=== PATIENT | female | born 1960 | race Caucasian/White ===

== ENCOUNTER → 2017-09-30 | Outpatient (CLI) | payer OTHER ==
--- NOTE | 2017-09-30 08:52 | US ---
EXAMINATION TYPE: US liver DATE OF EXAM: 09/30/2017 COMPARISON: NONE CLINICAL HISTORY: 57-year-old female R94.5 Abnormal liver test. TECHNIQUE: Multiple sonographic images of the right upper quadrant are obtained. FINDINGS: WOOD CASKET ASSEMBLER NOTES: Difficult and limited exam due to patient body habitus EXAM MEASUREMENTS: Liver Length: 19.1 cm Gallbladder Wall: 0.2 cm CBD: 0.4 cm Right Kidney: 10.2 x 5.3 x 5.4 cm Pancreas: Obscured by bowel gas. Liver: Attenuating, enlarged. Coarse, echogenic parenchyma. This secondarily limits assessment for f ocal lesion. Gallbladder: wnl Evidence for sonographic Salazar's sign: No CBD: wnl as visualized, distal portion obscured by bowel gas Right Kidney: No hydronephrosis. IMPRESSION: Hepatomegaly (19.1 cm) with at least moderate hepatic steatosis. Correlate with LFTs, lipid profile, and patient risk factors.
== END | disposition home or self-care (01) ==
LOC: RADUSWWP 07:58
PROVIDERS: ATTEND Internal Medicine
DX: K76.0 Fatty (change of) liver, not elsewhere classified (principal)
CPT/HCPCS: 76705

== ENCOUNTER → 2018-05-09 | Outpatient (CLI) | payer OTHER ==
--- NOTE | 2018-05-13 07:43 | MM ---
Reason for exam: screening (asymptomatic). History: Patient is postmenopausal. Family history of breast cancer in maternal aunt. Physical Findings: A clinical breast exam by your physician is recommended on an annual basis and results should be correlated with mammographic findings. MG Screening Mammo w CAD Bilateral CC and MLO view(s) were taken. No prior studies available for comparison. The breast tissue is heterogeneously dense. This may lower the sensitivity of mammography. There is no discrete abnormality. ASSESSMENT: Benign, BI-RAD 2 RECOMMENDATION: Routine screening mammogram of both breasts in 1 year.
== END | disposition home or self-care (01) ==
LOC: RADMAMWWP 15:09
PROVIDERS: ATTEND Internal Medicine
DX: Z12.31 Encounter for screening mammogram for malignant neoplasm of breast (principal)
CPT/HCPCS: 77067

== ENCOUNTER → 2018-05-23 | Outpatient (CLI) | payer OTHER ==
--- NOTE | 2018-05-23 13:10 | XR ---
EXAMINATION TYPE: XR chest 2V DATE OF EXAM: 05/23/2018 COMPARISON: NONE HISTORY: Concern for left lung pulmonary nodule TECHNIQUE: Frontal and lateral views of the chest are obtained. FINDINGS: There is mild interstitial pulmonary edema and pulmonary vascular congestion. Left basal a telectasis is noted. Moderate multilevel degenerative changes of the spine are seen. No sizable pulmo nary nodule is noted on chest radiograph. Osseous structures are grossly intact. Cardiomediastinal si lhouette is enlarged. IMPRESSION: Mild pulmonary vascular congestion and interstitial edema, likely on the basis of conges tive heart failure. This limits evaluation for pulmonary nodules. CT thorax is recommended to ensure no underlying pulmonary nodule given the indication of the exam.
== END | disposition home or self-care (01) ==
LOC: RADXRMAIN 12:18
PROVIDERS: ATTEND Internal Medicine
DX: R91.8 Other nonspecific abnormal finding of lung field (principal); R09.89 Other specified symptoms and signs involving the circulatory and respiratory systems; R60.0 Localized edema
CPT/HCPCS: 71046

== ENCOUNTER → 2018-06-13 | Outpatient (CLI) | payer OTHER | END | disposition home or self-care (01) | LOC: RADNMMAIN 10:31 | PROVIDERS: ATTEND Internal Medicine | DX: Z53.9 Procedure and treatment not carried out, unspecified reason (principal) ==

== ENCOUNTER → 2018-06-13 | Outpatient (CLI) | payer OTHER ==
[2018-06-13 12:41] LABS: Blood Urea Nitrogen 14 mg/dL (7-17)
--- NOTE | 2018-06-13 13:43 | CT ---
EXAMINATION TYPE: CT chest w con DATE OF EXAM: 06/13/2018 COMPARISON: NONE HISTORY: Abnormal left lung field. CT DLP: 928.4 mGycm. Automated Exposure Control for Dose Reduction was Utilized. TECHNIQUE: CT scan of the thorax is performed following with IV Contrast, patient injected with 100 mL of Isovue M300. FINDINGS: LUNGS: Centrally calcified right 1 cm pulmonary nodule in the superior segment of the lower lobe medi ally most commonly represents a benign granuloma. However this calcification centrally is only faint when the bone algorithm is used for assessment. No other sizable pulmonary nodules are seen. No left-sided pulmonary nodule is seen. There are overall low lung volumes and pleural parenchymal sc arring within the lingula and left lower lobe. No pleural effusion or pneumothorax. No focal consolid ation. Main tracheobronchial tree is patent. MEDIASTINUM: There are no greater than 1 cm hilar or mediastinal lymph nodes. Few coronary calcificat ions are present. Heart is upper limits of normal in size. No pericardial effusion is seen. OTHER: The liver is enlarged and hypoattenuated compatible with hepatic steatosis. Moderate multileve l degenerative changes of the spine are seen. IMPRESSION: 1. Solitary right pulmonary nodule contains internal calcifications and is highly favored to represen t a benign granuloma however considering calcifications are only faint and no other granulomatous galindo nges are seen within the chest or upper abdomen follow-up CT thorax is recommended in 6-12 months to ensure stability. 2. Hepatic steatosis.
--- NOTE | 2018-06-13 13:58 | EST ---
EXERCISE STRESS AGE: 57 SEX: F HT: 68 WT: 348 PROTOCOL: Osmar Stress Test STAGE: 1 DURATION OF EXERCISE: 1:31 HEART RATE REST: 106 BLOOD PRESSURE REST: 139/89 MAXIMUM HEART RATE ACHIEVED: 168 MAXIMUM BLOOD PRESSURE: 142/89 85% MPHR: 139 100% MPHR: 164 METS: 2.8 INDICATIONS: Shortness of breath. CLINICAL INFORMATION: Baseline rhythm is sinus mechanism, rate of 106, normal axis and intervals, poor R-wave progression, nonspecific ST-T wave changes. Baseline blood pressure 139/89 mmHg. Patient exercised on Osmar protocol for 1 minute 30 seconds reaching peak rate of 168 beats per minute which is equal to 85% maximum predicted heart rate. Peak blood pressure 142/89 mmHg. Test was terminated secondary to fatigue. There was no chest pain. Electrocardiograph monitoring revealed no evidence of diagnostic ischemic ST deviation. Atrial arrhythmia was noted with short bursts of supraventricular tachycardia. CONCLUSION: 1. Very poor exercise tolerance. 2. One episode of atrial arrhythmia. 3. Normal electrocardiographic response to exercise with no evidence of exercise- induced ischemia. MMODL / IJN: [id number] / MTDD
--- NOTE | 2018-06-13 18:05 | ECHOF ---
Referral Reason:BILATERAL EDEMA, ETC MEASUREMENTS -------- HEIGHT: 165.1 cm WEIGHT: 157.8 kg BP: RVIDd: 3.0 cm (< 3.3) IVSd: 1.2 cm (0.6 - 1.1) LVIDd: 4.6 cm (3.9 - 5.3) LVPWd: 1.2 cm (0.6 - 1.1) IVSs: 1.4 cm LVIDs: 3.2 cm LVPWs: 1.4 cm LA Diam: 4.3 cm (2.7 - 3.8) Ao Diam: 3.5 cm (2.0 - 3.7) AV Cusp: 2.2 cm (1.5 - 2.6) LA Diam: 4.1 cm (2.7 - 3.8) MV EXCURSION: 17.701 mm (> 18.000) MV EF SLOPE: 90 mm/s (70 - 150) EPSS: 0.5 cm MV E Valdemar: 0.56 m/s MV DecT: 174 ms MV A Valdemar: 0.63 m/s MV E/A Ratio: 0.88 RAP: 5.00 mmHg RVSP: 24.33 mmHg FINDINGS -------- Sinus rhythm. Morbid Obesity The left ventricular size is normal. There is mild concentric left ventricular hypertrophy. Overa ll left ventricular systolic function is normal with, an EF between 55 - 60 %. The right ventricle is normal in size. The left atrium is mildly dilated. The right atrial size is normal. The atrial septal defect shunts from left to right. ASD VS PFO. There is mild aortic valve sclerosis. There is no evidence of aortic regurgitation. Mild mitral annular calcification present. Mild mitral regurgitation is present. Mild tricuspid regurgitation present. There is no evidence of pulmonary hypertension. The right v entricular systolic pressure, as measured by Doppler, is 24.33mmHg. There is no pulmonic regurgitation present. The aortic root size is normal. Echo free space represents a pericardial fat pad. Possible PFO/ASD: Bubble Study Done Per Adriano GAR CONCLUSIONS -------- 1. Sinus rhythm. 2. Morbid Obesity 3. The left ventricular size is normal. 4. There is mild concentric left ventricular hypertrophy. 5. Overall left ventricular systolic function is normal with, an EF between 55 - 60 %. 6. The left atrium is mildly dilated. 7. The atrial septal defect shunts from left to right. 8. ASD VS PFO. 9. There is mild aortic valve sclerosis. 10. Mild mitral annular calcification present. 11. Mild mitral regurgitation is present. 12. Mild tricuspid regurgitation present. 13. There is no evidence of pulmonary hypertension. 14. There is no pulmonic regurgitation present. 15. The aortic root size is normal. 16. Echo free space represents a pericardial fat pad. 17. Possible PFO/ASD: Bubble Study Done Per Primary DRKwame CONSTRUCTION ELECTRICIAN: Radha Navarro RDCS
== END ==
LOC: RADCTMAIN 10:33
PROVIDERS: ATTEND Internal Medicine
DX: R91.1 Solitary pulmonary nodule (principal); R91.8 Other nonspecific abnormal finding of lung field; R60.0 Localized edema; R09.89 Other specified symptoms and signs involving the circulatory and respiratory systems; R06.09 Other forms of dyspnea; G47.33 Obstructive sleep apnea (adult) (pediatric); E66.01 Morbid (severe) obesity due to excess calories; R06.01 Orthopnea; E11.9 Type 2 diabetes mellitus without complications
CPT/HCPCS: 93017; 93306; 82565; 84520; 71260; 36415; Q9967

== ENCOUNTER → 2018-07-31 | Outpatient (CLI) | payer OTHER ==
--- NOTE | 2018-07-31 16:38 | CT ---
EXAMINATION TYPE: CT soft tissue neck wo/w con DATE OF EXAM: 07/31/2018 COMPARISON: None HISTORY: Left side neck mass CT DLP: 1437 mGycm CONTRAST: Patient injected with 100 mL of Isovue 300. TECHNIQUE: Axial images at 3 mm thick sections. Reconstructed images in the coronal plane and sagitt al plane are reviewed. FINDINGS: Limited CT sections are obtained the lung apices. The lung apices appear clear. CT neck: The torus tubarius and fossa of Rosenmuller are normal. Rough And Trueing Machine Operator spaces are normal. Para nasal sinuses and mastoid air cells are clear. Parotid glands appear normal and symmetrical. Submandibular glands, are normal. Parapharyngeal spac es are normal. No suspicious adenopathy is evident. The hypopharynx appears within normal limits. Vocal cord level appear symmetrical. Thyroid as visualized is normal. Osseous structures are normal. IMPRESSIONS: 1. No suspicious abnormality to account for reported left-sided neck mass
== END | disposition home or self-care (01) ==
LOC: RADCTMAIN 13:58
PROVIDERS: ATTEND Internal Medicine
DX: R22.1 Localized swelling, mass and lump, neck (principal); Z88.2 Allergy status to sulfonamides; Z88.1 Allergy status to other antibiotic agents
CPT/HCPCS: 82565; 84520; 70492; 36415; Q9967

== ENCOUNTER → 2018-10-22 | Outpatient (CLI) | payer OTHER ==
--- NOTE | 2018-10-22 09:59 | US ---
EXAMINATION TYPE: US abdomen complete DATE OF EXAM: 10/22/2018 COMPARISON: US 2018 CLINICAL HISTORY: R10 Abdominal and pelvic pain. Intermittent abdomen pain x couple months EXAM MEASUREMENTS: Liver Length: 21.8 cm Gallbladder Wall: 0.2 cm CBD: 0.5 cm Spleen: 12.2 cm Right Kidney: 10.8 x 5.9 x 6.9 cm Left Kidney: 11.5 x 6.1 x 6.1 cm Difficult and limited study due to patient body habitus Pancreas: visualized portions wnl, limited by overlying midline bowel gas Liver: enlarged, attenuating, increased echogenicity, heterogeneous, 6.3 x 1.8 x 4.1cm hypoechoic ar ea Gallbladder: wnl Evidence for sonographic Salzaar's sign: no CBD: wnl Spleen: wnl Right Kidney: wnl Left Kidney: wnl Upper IVC: wnl Abd Aorta: visualized portions wnl, distal portion obscured by overlying midline bowel gas The visualized liver remains heterogeneously hyperechoic. Evaluation for focal masses is suboptimal d ue to the heterogeneity. No intrahepatic ductal dilatation is seen. The intrahepatic portion of the IVC and proximal abdominal aorta are within normal limits. There is no evidence of cholelithiasis. Common bile duct is unremarkable. The visualized portions of the pancreas are homogenous. The splee n is unremarkable. Kidneys are symmetric and free of hydronephrosis. No renal lesions are seen. IMPRESSION: Heterogeneous hyperechoic appearance of liver redemonstrated favors product of diffuse fa tty infiltration. Underlying hepatocellular disease is not excluded. No new or acute finding is evide nt. Suboptimal study noted.
--- NOTE | 2018-10-22 10:12 | US ---
EXAMINATION TYPE: US pelvic complete DATE OF EXAM: 10/22/2018 COMPARISON: NONE CLINICAL HISTORY: R10 Abdominal and pelvic pain. Intermittent abdomen pain x couple months, 4 , para 3, miscarriage 1, history of partial hysterectomy. TECHNIQUE: . Transabdominal sonographic images of the pelvis were acquired. Transvaginal sonographi c images were medically necessary to better assess the following anatomy: ovaries Date of LMP: 2005 EXAM MEASUREMENTS: Uterus: surgically absent Endometrial Stripe: surgically absent Right Ovary: not seen Left Ovary: not seen Difficult and limited study due to patient body habitus 1. Uterus: surgically absent 2. Endometrium: surgically absent 3. Right Ovary: not seen 4. Left Ovary: not seen 5. Bilateral Adnexa: wnl 6. Posterior cul-de-sac: wnl IMPRESSION: Posthysterectomy changes. No suspicious mass or fluid.
== END | disposition home or self-care (01) ==
LOC: RADUSWWP 07:59
PROVIDERS: ATTEND Internal Medicine
DX: R10.32 Left lower quadrant pain (principal); Z90.710 Acquired absence of both cervix and uterus
CPT/HCPCS: 76700; 76830; 76856

== ENCOUNTER 2019-08-27 14:59 | Inpatient (IN) | payer OTHER ==
[2019-08-27] MEDS ORDERED: SODIUM CHLORIDE 0.9% 500 ML 500 ML IV STA (15:21)
--- NOTE | 2019-08-27 15:41 | ED ---
General Adult HPI - General Chief complaint: Shortness of Breath Stated complaint: fluid retention/high BP Source: patient Mode of arrival: ambulatory Limitations: no limitations - History of Present Illness Initial comments: 59-year-old female patient with past medical history significant for COPD, coronary artery disease, hypertension, diabetes presents to the emergency depart ment today for evaluation of increased shortness of breath, weakness, leg swelling. Patient has been having issues swelling with her legs since being discharged from the hospital a little over a week ago. She was diagnosed with COVID-19 at the beginning of May. States that she was hospitalized for 53 days, 3 weeks of which she was intubated in the ICU. Patient states that she has been taking Lasix in attempt to control his swelling but it is not helping. States she did see her construction cost estimator today who recommended she come to the emergency department for evaluation of possible blood clots. Patient states she has had DVT to the left lower extremity in the past and is currently takes aroun d so for this. Patient states her blood pressure has been elevated at home in the 170s systolic over 109 diastolic. He has been taking her medications as directed. She is currently using 4 L of oxygen at home, on a 50 foot tube. Patient denies any recent rash, fever, chills, cough, abdominal pain, nausea, vomiting, diarrhea, constipation, back pain, numbness, tingling, hematuria, dysuria, urinary urgency, urinary frequency, headache, visual changes, or any other complaints. - Related Data Home Medications Medication Instructions Recorded Confirmed Acetaminophen [Tylenol Extra 500 mg PO DAILY PRN 05/20/19 05/20/19 Strength] Carvedilol 50 mg PO BID 05/20/19 05/20/19 Chlorthalidone 25 mg PO DAILY 05/20/19 05/20/19 Furosemide [Lasix] 40 mg PO DAILY 05/20/19 05/20/19 Glimepiride [Amaryl] 1 mg PO AC-BRKFST 05/20/19 05/20/19 Potassium Chloride [Klor-Con 10] 10 meq PO DAILY 05/20/19 05/20/19 Rivaroxaban [Xarelto] 20 mg PO DAILY 05/20/19 05/20/19 amLODIPine [Norvasc] 10 mg PO DAILY 05/20/19 05/20/19 oxyCODONE-APAP 10-325MG [Percocet 1 tab PO Q8HR PRN 05/20/19 05/20/19 10-325 mg] Allergies Allergy/AdvReac Type Severity Reaction Status Date / Time cephalexin [From Keflex] AdvReac Rash/Hives Verified 08/27/19 15:03 Sulfa (Sulfonamide AdvReac Rash/Hives Verified 08/27/19 15:03 Antibiotics) Review of Systems ROS Statement: Those systems with pertinent positive or pertinent negative responses have been documented in the HPI. ROS Other: All systems not noted in ROS Statement are negative. Past Medical History Past Medical History: Coronary Artery Disease (CAD), COPD, Diabetes Mellitus, Hypertension, Renal Disease Additional Past Medical History / Comment(s): Chronic low back pain, obesity, type 2 diabetes, suspected renal failure. Past ESCROW CLERK history: Genital herpes but she states she has not had any outbreaks for years. History of Any Multi-Drug Resistant Organisms: None Reported Past Surgical History: Hysterectomy, Joint Replacement Additional Past Surgical History / Comment(s): DESMOND/BSO in 2005, bilateral knee replacements, vascular leg stents, D&C. Past Psychological History: No Psychological Hx Reported Smoking Status: Never smoker Past Alcohol Use History: None Reported Past Drug Use History: None Reported - Past Family History Father Family Medical History: Cancer, Myocardial Infarction (MA) Additional Family Medical History / Comment(s): Esophageal cancer Mother Family Medical History: Rheumatoid Arthritis (RA) Additional Family Medical History / Comment(s): Gout. Maternal aunt had lung cancer and breast cancer. Daughter(s) Additional Family Medical History / Comment(s): Depression. General Exam Limitations: no limitations General appearance: alert, in no apparent distress, other (This is a well- developed, well-nourished adult female patient in no acute distress. Vital signs upon presentation are temperature 98.8F, pulse 144, respirations 20, blood pressure 140/99, pulse ox 91% on 4 L.) Eye exam: Present: normal appearance, PERRL, EOMI. Absent: scleral icterus, conjunctival injection, periorbital swelling ENT exam: Present: normal exam, normal oropharynx, mucous membranes moist Respiratory exam: Present: normal lung sounds bilaterally. Absent: respiratory distress, wheezes, rales, rhonchi, stridor Cardiovascular Exam: Present: normal rhythm, tachycardia, normal heart sounds. Absent: systolic murmur, diastolic murmur, rubs, gallop, clicks GI/Abdominal exam: Present: soft, normal bowel sounds. Absent: distended, tenderness, guarding, rebound, rigid Extremities exam: Present: full ROM, normal capillary refill, other (There is bilateral lower extremity swelling over the lower leg and feet. It is nonpitting edema. No erythema.). Absent: normal inspection, tenderness, pedal edema, joint swelling, calf tenderness Neurological exam: Present: alert, oriented X3, CN II-XII intact Psychiatric exam: Present: normal affect, normal mood Skin exam: Present: warm, dry, intact, normal color. Absent: rash Course Vital Signs 08/27/19 08/27/19 08/27/19 15:00 15:11 15:20 Temperature 98.8 F Pulse Rate 144 H Respiratory 20 13 Rate Blood Pressure 140/99 158/103 O2 Sat by Pulse 91 L 98 98 Oximetry 08/27/19 08/27/19 08/27/19 15:30 15:40 15:50 Temperature Pulse Rate 129 H 93 Respiratory 23 24 20 Rate Blood Pressure 158/103 141/73 141/73 O2 Sat by Pulse 97 98 99 Oximetry 08/27/19 08/27/19 08/27/19 16:00 16:10 16:20 Temperature Pulse Rate 96 101 H 100 Respiratory 21 Rate Blood Pressure 141/73 125/95 125/95 O2 Sat by Pulse 99 99 98 Oximetry 08/27/19 08/27/19 16:30 17:00 Temperature Pulse Rate 99 97 Respiratory Rate Blood Pressure 125/95 142/90 O2 Sat by Pulse 97 100 Oximetry EKG Findings - EKG Comments: EKG Findings:: EKG obtained at 1520 shows sinus tachycardia with ventricular rate is 135, NV interval 140, QRS duration 102, QT to 94, QTC 441. No evidence of ST elevation or depression. Medical Decision Making - Medical Decision Making 59-year-old female patient presents to the emergency department today for evaluation of leg swelling, elevated blood pressure, and shortness of breath. Patient was hospitalized for 53 days after being diagnosed with COVID-19 at the beginning of May. Patient states she has been home and has been recovering but over the last few days has been feeling worse. She does wear 4-5 L of oxygen at home. Upon initial evaluation heart rate was 140, she is to Make, there is evidence for leg swelling. She does take developed over history of DVT. Labs reviewed and did reveal elevated d-dimer, or otherwise unremarkable. CT angiography of the chest was obtained and did show bilateral pneumonia. This patient was hospitalized at [facility] we are unsure if this is improving or worsening. We'll admit to the hospital for antibiotics and further monitoring. Patient is agreeable this plan. - Lab Data Result diagrams: 08/27/19 15:26 08/27/19 15:26 Lab Results 08/27/19 08/27/19 08/27/19 Range/Units 15:26 15:26 15:26 WBC 10.5 (3.8-10.6) k/uL RBC 4.49 (3.80-5.40) m/uL Hgb 12.6 (11.4-16.0) gm/dL Hct 40.0 (34.0-46.0) % MCV 89.3 (80.0-100.0) fL MCH 28.0 (25.0-35.0) pg MCHC 31.4 (31.0-37.0) g/dL RDW 16.0 H (11.5-15.5) % Plt Count 246 (150-450) k/uL Neutrophils % 56 % Lymphocytes % 33 % Monocytes % 5 % Eosinophils % 3 % Basophils % 1 % Neutrophils # 5.9 (1.3-7.7) k/uL Lymphocytes # 3.5 (1.0-4.8) k/uL Monocytes # 0.5 (0-1.0) k/uL Eosinophils # 0.3 (0-0.7) k/uL Basophils # 0.1 (0-0.2) k/uL Anisocytosis Slight PT 11.7 (9.0-12.0) sec INR 1.2 H (<1.2) APTT 26.2 (22.0-30.0) sec D-Dimer 1.20 H (<0.60) mg/L FEU Sodium 135 L (137-145) mmol/L Potassium 3.8 (3.5-5.1) mmol/L Chloride 91 L (98-107) mmol/L Carbon Dioxide 34 H (22-30) mmol/L Anion Gap 10 mmol/L BUN 18 H (7-17) mg/dL Creatinine 0.62 (0.52-1.04) mg/dL Est GFR (CKD-EPI)AfAm >90 (>60 ml/min/1.73 sqM) Est GFR (CKD-EPI)NonAf >90 (>60 ml/min/1.73 sqM) Glucose 138 H (74-99) mg/dL Plasma Lactic Acid Carlton (0.7-2.0) mmol/L Calcium 9.6 (8.4-10.2) mg/dL Total Bilirubin 0.8 (0.2-1.3) mg/dL AST 52 H (14-36) U/L ALT 33 (4-34) U/L Alkaline Phosphatase 79 (38-126) U/L Troponin I (0.000-0.034) ng/mL Total Protein 8.2 (6.3-8.2) g/dL Albumin 4.5 (3.5-5.0) g/dL 08/27/19 08/27/19 Range/Units 15:26 15:26 WBC (3.8-10.6) k/uL RBC (3.80-5.40) m/uL Hgb (11.4-16.0) gm/dL Hct (34.0-46.0) % MCV (80.0-100.0) fL MCH (25.0-35.0) pg MCHC (31.0-37.0) g/dL RDW (11.5-15.5) % Plt Count (150-450) k/uL Neutrophils % % Lymphocytes % % Monocytes % % Eosinophils % % Basophils % % Neutrophils # (1.3-7.7) k/uL Lymphocytes # (1.0-4.8) k/uL Monocytes # (0-1.0) k/uL Eosinophils # (0-0.7) k/uL Basophils # (0-0.2) k/uL Anisocytosis PT (9.0-12.0) sec INR (<1.2) APTT (22.0-30.0) sec D-Dimer (<0.60) mg/L FEU Sodium (137-145) mmol/L Potassium (3.5-5.1) mmol/L Chloride (98-107) mmol/L Carbon Dioxide (22-30) mmol/L Anion Gap mmol/L BUN (7-17) mg/dL Creatinine (0.52-1.04) mg/dL Est GFR (CKD-EPI)AfAm (>60 ml/min/1.73 sqM) Est GFR (CKD-EPI)NonAf (>60 ml/min/1.73 sqM) Glucose (74-99) mg/dL Plasma Lactic Acid Carlton 1.9 (0.7-2.0) mmol/L Calcium (8.4-10.2) mg/dL Total Bilirubin (0.2-1.3) mg/dL AST (14-36) U/L ALT (4-34) U/L Alkaline Phosphatase (38-126) U/L Troponin I 0.020 (0.000-0.034) ng/mL Total Protein (6.3-8.2) g/dL Albumin (3.5-5.0) g/dL - Radiology Data Radiology results: report reviewed, image reviewed CT chest angiography for pulmonary embolism was obtained. Report was reviewed in its entirety. Impression by Dr. Batres shows no evidence of pulmonary embolism. Extensive bilateral anterior pulmonary infiltrates consistent with pneumonia. X-ray of the chest is obtained. Report reviewed in its entirety. Impression by Dr. Juarez shows new linear left midlung opacities and may represent developing pneumonia or atelectasis. Disposition Clinical Impression: Pneumonia Disposition: ADMITTED IP TO THIS [facility] Condition: Serious Referrals: Issac Cook MD [Primary Care Provider] - 1-2 days Decision to Admit Reason: Admit from EC Decision Date: 08/27/19 Decision Time: 18:01
--- NOTE | 2019-08-27 15:41 | XR ---
EXAMINATION TYPE: XR chest 2V DATE OF EXAM: 08/27/2019 COMPARISON: 05/23/2018 HISTORY: Dyspnea TECHNIQUE: Frontal and lateral views of the chest are obtained. FINDINGS: New linear left midlung opacity could represent atelectasis or developing pneumonia. Cardi a mediastinal silhouette is again mildly enlarged. Improved aeration of the left costophrenic angle i n comparison to the prior. Moderate degenerative change of the spine. IMPRESSION: New linear left midlung opacities that may represent developing pneumonia or atelectasis .
[2019-08-27 15:48] LABS: Anisocytosis Slight; Basophils # (A) 0.1 k/uL (0-0.2); Basophils % (A) 1 %; Eosinophils # (A) 0.3 k/uL (0-0.7); Eosinophils % (A) 3 %; HGB 12.6 gm/dL (11.4-16.0); Lymphocytes # (A) 3.5 k/uL (1.0-4.8); Lymphocytes % (A) 33 %; MCHC 31.4 g/dL (31.0-37.0); MCV 89.3 fL (80.0-100.0); Mean Platelet Volume 8.1; Monocytes # (A) 0.5 k/uL (0-1.0); Monocytes % (A) 5 %; Neutrophils # (A) 5.9 k/uL (1.3-7.7); Neutrophils % (A) 56 %; Platelet Count 246 k/uL (150-450); RBC 4.49 m/uL (3.80-5.40); WBC 10.5 k/uL (3.8-10.6)
[2019-08-27 15:58] LABS: ALT 33 U/L (4-34); AST 52 U/L (14-36); African American GFR (CKD) >90 (>60 ml/min/1.73 sqM); Albumin 4.5 g/dL (3.5-5.0); Alkaline Phosphatase 79 U/L (38-126); Anion Gap 10 mmol/L; Blood Urea Nitrogen 18 mg/dL (7-17); Calcium 9.6 mg/dL (8.4-10.2); Carbon Dioxide 34 mmol/L (22-30); Chloride 91 mmol/L (98-107); Glucose 138 mg/dL (74-99); Non-African American GFR(CKD) >90 (>60 ml/min/1.73 sqM); Sodium 135 mmol/L (137-145); Total Bilirubin 0.8 mg/dL (0.2-1.3); Total Protein 8.2 g/dL (6.3-8.2)
[2019-08-27 16:09] LABS: Potassium 3.8 mmol/L (3.5-5.1)
[2019-08-27 16:20] LABS: INR 1.2 (<1.2); Partial Thromboplastin Time 26.2 sec (22.0-30.0); Prothrombin Time 11.7 sec (9.0-12.0)
[2019-08-27 16:21] LABS: D-Dimer 1.2 mg/L FEU (<0.60)
--- NOTE | 2019-08-27 17:32 | CT ---
EXAMINATION TYPE: CT chest angio for PE DATE OF EXAM: 08/27/2019 COMPARISON: None HISTORY: Shortness of breath. CT DLP: 1029.2 mGycm Automated exposure control for dose reduction was used. CONTRAST: Performed with IV Contrast, patient injected with 100 mL of Isovue 370. There are 3-D post processed images. FINDINGS: There is moderate reticular interstitial infiltrate in both right middle lobe and the lingula left up per lobe and to a lesser extent the anterior segments of both upper lobes. There is no mediastinal ad enopathy. Thoracic aorta shows no aneurysm or dissection. Heart is slightly enlarged. There is no per icardial effusion. There is no pleural effusion. There is no adrenal mass. Upper abdominal soft tissues are intact. There are a few paratracheal lymph nodes that measure less than 1 cm. There are no hilar masses. There is normal contrast opacification of the pulmonary arteries. There are no filling defects. There is some spurring in the thoracic spine. I see no bony destructive process. There is no compression f racture. Bony thorax appears intact. IMPRESSION: No evidence of pulmonary embolism. Extensive bilateral anterior pulmonary infiltrates consistent with pneumonia. Infiltrates are essentially new compared to old exam of 06/13/2018..
[2019-08-27] MEDS ORDERED: LEVOFLOXACIN 750MG-D5W PMX 750 MG in DEXTROSE/WATER 1 150ML.BAG IVPB STA (17:59)
[2019-08-27] MEDS ORDERED: PIPERACILLIN-TAZOBACTAM 3.375 GM in SODIUM CHLORIDE 0.9% 100 ML IVPB STA (17:59)
[2019-08-27] MEDS ORDERED: PNEUMONIA PROTOCOL UTILIZED 1 EACH MISC PO PRN (17:59)
[2019-08-27] MEDS ORDERED: ALBUTEROL NEBULIZED 2.5 MG/3 ML INHALATION PRN (18:14)
[2019-08-27] MEDS: ALBUTEROL NEBULIZED 2.5 MG/3 ML INHALATION SCH (20:45)
[2019-08-27] MEDS ORDERED: ACETAMINOPHEN TAB 325 MG TAB PO PRN (21:08)
[2019-08-28] MEDS: PIPERACILLIN-TAZOBACTAM 3.375 GM in SODIUM CHLORIDE 0.9% 100 ML IVPB SCH ×3 (04:46→20:45)
[2019-08-28] MEDS: ALBUTEROL NEBULIZED 2.5 MG/3 ML INHALATION SCH ×4 (07:53→19:07)
--- NOTE | 2019-08-28 07:59 | XR ---
EXAMINATION TYPE: XR chest 1V DATE OF EXAM: 08/28/2019 COMPARISON: 08/27/2019 HISTORY: Shortness of breath TECHNIQUE: Single frontal view of the chest is obtained. FINDINGS: Bilateral areas of consolidation are stable. Heart size stable. Hypertrophic and degenerat juanita change of the spine. Biapical pleural thickening. No pneumothorax. IMPRESSION: Stable bilateral infiltrate
--- NOTE | 2019-08-28 11:26 | P.CNPUL ---
History of Present Illness Consult date: 08/28/19 Reason for consult: dyspnea, pneumonia Chief complaint: Progressive sob and lower extremity swelling for the last few days History of present illness: This is a 59-year-old well-known to me patient has prior history of hypertensive heart failure morbid obesity and history of deep venous thrombosis of lower extremity, patient presented at [facility] in May with hypoxia fever she was found to have covert 19 pneumonia, hospital course was complicated with progressive worsening of pneumonia with developed end of ARDS patient required prolonged ventilator assistance as well subsequently she is been e xtubated and was 10 rehab discharge on 5 L nasal cannula with weakness of the lower extremity, patient has been doing well on 5 L nasal cannula but lately in the last few days has been more short of breath, no fever or chills no cough, her swelling of the lower extremity also started getting worse came into the hospital as per advise of supervisor coating, white cell count is normal, BNP is not done computed tomography scan of the chest shows fibrotic changes bilaterally consistent with prior ARDS however a new infiltrate cannot be excluded, she has swelling of the lower extremity, renal functions have been stable, d-dimer noted to be 1.2, chest x-ray continue show chronic changes, she is afebrile tachypneic acute cardiac, computed tomography scan as well as the chest x-ray has been reviewed Review of Systems All systems: negative Past Medical History Past Medical History: Coronary Artery Disease (CAD), COPD, Diabetes Mellitus, Hypertension, Renal Disease Additional Past Medical History / Comment(s): Chronic low back pain, obesity, type 2 diabetes, suspected renal failure. Past CEMENT FINISHER history: Genital herpes but she states she has not had any outbreaks for years. History of Any Multi-Drug Resistant Organisms: None Reported Past Surgical History: Hysterectomy, Joint Replacement Additional Past Surgical History / Comment(s): DESMOND/BSO in 2006, bilateral knee replacements, vascular leg stents, D&C. Past Psychological History: No Psychological Hx Reported Smoking Status: Never smoker Past Alcohol Use History: None Reported Past Drug Use History: None Reported - Past Family History Father Family Medical History: Cancer, Myocardial Infarction ([place]) Additional Family Medical History / Comment(s): Esophageal cancer Mother Family Medical History: Rheumatoid Arthritis (RA) Additional Family Medical History / Comment(s): Gout. Maternal aunt had lung cancer and breast cancer. Daughter(s) Additional Family Medical History / Comment(s): Depression. Medications and Allergies Home Medications Medication Instructions Recorded Confirmed Type Chlorthalidone 25 mg PO QAM 05/20/19 08/27/19 History Furosemide [Lasix] 40 mg PO BID 05/20/19 08/27/19 History Glimepiride [Amaryl] 1 mg PO AC-BRKFST 05/20/19 08/27/19 History Rivaroxaban [Xarelto] 20 mg PO DAILY 05/20/19 08/27/19 History oxyCODONE-APAP 10-325MG [Percocet 1 tab PO Q8HR PRN 05/20/19 08/27/19 History 10-325 mg] Albuterol Inhaler [Ventolin Hfa 2 puff INHALATION RT-Q6H PRN 08/27/19 08/27/19 History Inhaler] Methocarbamol [Robaxin] 500 mg PO BID PRN 08/27/19 08/27/19 History Metoprolol Tartrate 25 mg PO DAILY 08/27/19 08/27/19 History Allergies Allergy/AdvReac Type Severity Reaction Status Date / Time cephalexin [From Keflex] AdvReac Rash/Hives Verified 08/27/19 23:07 Sulfa (Sulfonamide AdvReac Rash/Hives Verified 08/27/19 23:07 Antibiotics) Physical Exam Vitals: Vital Signs Temp Pulse Resp BP Pulse Ox 08/28/19 10:37 20 08/28/19 10:03 98.8 F 120 H 18 138/90 96 08/28/19 07:51 92 08/28/19 07:16 98.6 F 112 H 18 141/76 96 08/28/19 06:49 98.5 F 87 16 121/68 95 08/28/19 03:32 98.5 F 101 H 16 129/81 97 08/28/19 01:43 139/68 97 08/28/19 01:00 16 08/27/19 23:37 98.9 F 98 18 139/68 95 08/27/19 20:46 94 08/27/19 20:00 80 96 08/27/19 19:00 105 H 135/96 96 08/27/19 18:01 129/64 08/27/19 17:00 97 142/90 100 08/27/19 16:30 99 125/95 97 08/27/19 16:20 100 125/95 98 08/27/19 16:10 101 H 125/95 99 08/27/19 16:00 96 21 141/73 99 08/27/19 15:50 93 20 141/73 99 08/27/19 15:40 129 H 24 141/73 98 08/27/19 15:30 23 158/103 97 08/27/19 15:20 13 158/103 98 08/27/19 15:11 98 08/27/19 15:00 98.8 F 144 H 20 140/99 91 L Intake and Output 08/27/19 08/28/19 08/28/19 22:59 06:59 14:59 Other: Weight 148.778 kg - Constitutional General appearance: disheveled, mild distress, morbidly obese - EENT Eyes: EOMI, PERRLA Ears: bilateral: normal - Neck Neck: normal ROM Carotids: bilateral: upstroke normal Thyroid: bilateral: normal size - Respiratory Respiratory: bilateral: CTA - Cardiovascular Rhythm: regular Heart sounds: normal: S1, S2 - Gastrointestinal General gastrointestinal: decreased bowel sounds, distended - Integumentary Integumentary: normal turgor - Neurologic Neurologic: CNII-XII intact - Musculoskeletal Musculoskeletal: gait normal, generalized weakness, strength equal bilaterally - Psychiatric Psychiatric: A&O x's 3, appropriate affect, intact judgment & insight Results - Laboratory Findings CBC and BMP: 08/27/19 15:26 08/27/19 15:26 PT/INR, D-dimer PT 11.7 sec (9.0-12.0) 08/27/19 15:26 INR 1.2 (<1.2) H 08/27/19 15:26 D-Dimer 1.20 mg/L FEU (<0.60) H 08/27/19 15:26 Abnormal lab findings: Abnormal Labs 08/27/19 08/27/19 08/27/19 15:26 15:26 15:26 RDW 16.0 H INR 1.2 H D-Dimer 1.20 H Sodium 135 L Chloride 91 L Carbon Dioxide 34 H BUN 18 H Glucose 138 H AST 52 H - Diagnostic Findings Chest x-ray: report reviewed, image reviewed CT scan - chest: report reviewed, image reviewed (Finding as noted above) Assessment and Plan Assessment: Shortness of breath likely related to congestive heart failure acute on chronic systolic heart failure versus diastolic heart failure Bilateral pneumonia Recent ARDS with pulmonary fibrotic changes stable Recent covid 19 pneumonia and respiratory failure with prolonged ventilator stay status post weaning and extubation Bilateral lower extremity swelling History of DVT PE Hypertension hypertensive cardiovascular disease Plan: Agree with broad-spectrum antibiotics Agree with breathing treatments Will get echocardiogram suspect heart failure acute on chronic BNP level We'll get duplex ultrasound the lower extremity DVT prophylaxis Supplemental oxygen May need gentle diuresis intermittently Time with Patient: Greater than 30
[2019-08-28] MEDS ORDERED: ENOXAPARIN 40 MG/0.4 ML SYRINGE SQ SCH (11:30)
[2019-08-28] MEDS ORDERED: METHOCARBAMOL 500 MG TAB PO PRN (13:54)
[2019-08-28] MEDS ORDERED: ALBUTEROL HFA INHALER INHALATION PRN (13:54)
--- NOTE | 2019-08-28 13:58 | P.HPIM ---
History of Present Illness 59-year-old pleasant female known to me from her prolonged hospitalization at [facility] for COVID 19. Patient was intubated for prolonged period of time patient had ARDS at the time, was discharged after a prolonged hospital physician for inpatient stabilization as well and was discharged on 5 L of oxygen and patient remains on 5 L of oxygen and and patient did have pulmonary fibrosis and fibrotic changes. Patient comes in with bilateral pedal edema normal BNP did not appreciate any JVD and elevated blood pressure when questioned patient does complain of shortness of breath which is bit worse than usual. Patient is afebrile the Neck. CAT scan of the chest was obtained which showed multiple infiltrates consistent with some pulmonary fibrosis may be residual pneumonia from her last hospitalization. Patient denied any fever chills significant sputum production does have cough. Review of Systems REVIEW OF SYSTEMS: CONSTITUTIONAL: No fever, no malaise, no fatigue. HEENT: No recent visual problems or hearing problems. Denied any sore throat. CARDIOVASCULAR: No chest pain, orthopnea, PND, no palpitations, no syncope. PULMONARY: As mentioned in HPI GASTROINTESTINAL: No diarrhea, no nausea, no vomiting, no abdominal pain. NEUROLOGICAL: No headaches, no weakness, no numbness. HEMATOLOGICAL: Denies any bleeding or petechiae. GENITOURINARY: Denies any burning micturition, frequency, or urgency. MUSCULOSKELETAL/RHEUMATOLOGICAL: Denies any joint pain, swelling, or any muscle pain. ENDOCRINE: Denies any polyuria or polydipsia. The rest of the 14-point review of systems is negative. Past Medical History Past Medical History: Coronary Artery Disease (CAD), COPD, Diabetes Mellitus, Hypertension, Renal Disease Additional Past Medical History / Comment(s): Chronic low back pain, obesity, type 2 diabetes, suspected renal failure. Past SENIOR INVESTIGATOR history: Genital herpes but she states she has not had any outbreaks for years. History of Any Multi-Drug Resistant Organisms: None Reported Past Surgical History: Hysterectomy, Joint Replacement Additional Past Surgical History / Comment(s): DESMOND/BSO in 2006, bilateral knee replacements, vascular leg stents, D&C. Past Psychological History: No Psychological Hx Reported Smoking Status: Never smoker Past Alcohol Use History: None Reported Past Drug Use History: None Reported - Past Family History Father Family Medical History: Cancer, Myocardial Infarction ([place]) Additional Family Medical History / Comment(s): Esophageal cancer Mother Family Medical History: Rheumatoid Arthritis (RA) Additional Family Medical History / Comment(s): Gout. Maternal aunt had lung cancer and breast cancer. Daughter(s) Additional Family Medical History / Comment(s): Depression. Medications and Allergies Home Medications Medication Instructions Recorded Confirmed Type Chlorthalidone 25 mg PO QAM 05/20/19 08/27/19 History Furosemide [Lasix] 40 mg PO BID 05/20/19 08/27/19 History Glimepiride [Amaryl] 1 mg PO AC-BRKFST 05/20/19 08/27/19 History Rivaroxaban [Xarelto] 20 mg PO DAILY 05/20/19 08/27/19 History oxyCODONE-APAP 10-325MG [Percocet 1 tab PO Q8HR PRN 05/20/19 08/27/19 History 10-325 mg] Albuterol Inhaler [Ventolin Hfa 2 puff INHALATION RT-Q6H PRN 08/27/19 08/27/19 History Inhaler] Methocarbamol [Robaxin] 500 mg PO BID PRN 08/27/19 08/27/19 History Metoprolol Tartrate 25 mg PO DAILY 08/27/19 08/27/19 History Allergies Allergy/AdvReac Type Severity Reaction Status Date / Time cephalexin [From Keflex] AdvReac Rash/Hives Verified 08/27/19 23:07 Sulfa (Sulfonamide AdvReac Rash/Hives Verified 08/27/19 23:07 Antibiotics) Physical Exam Vitals: Vital Signs Temp Pulse Resp BP Pulse Ox 08/28/19 13:02 96 18 137/84 97 08/28/19 11:31 112 H 08/28/19 11:22 116 H 08/28/19 10:37 20 08/28/19 10:03 98.8 F 120 H 18 138/90 96 08/28/19 07:51 92 08/28/19 07:16 98.6 F 112 H 18 141/76 96 08/28/19 06:49 98.5 F 87 16 121/68 95 08/28/19 03:32 98.5 F 101 H 16 129/81 97 08/28/19 01:43 139/68 97 08/28/19 01:00 16 08/27/19 23:37 98.9 F 98 18 139/68 95 08/27/19 20:46 94 08/27/19 20:00 80 96 08/27/19 19:00 105 H 135/96 96 08/27/19 18:01 129/64 08/27/19 17:00 97 142/90 100 08/27/19 16:30 99 125/95 97 08/27/19 16:20 100 125/95 98 08/27/19 16:10 101 H 125/95 99 08/27/19 16:00 96 21 141/73 99 08/27/19 15:50 93 20 141/73 99 08/27/19 15:40 129 H 24 141/73 98 08/27/19 15:30 23 158/103 97 08/27/19 15:20 13 158/103 98 08/27/19 15:11 98 08/27/19 15:00 98.8 F 144 H 20 140/99 91 L Intake and Output 08/27/19 08/28/19 08/28/19 22:59 06:59 14:59 Other: Weight 148.778 kg PHYSICAL EXAMINATION: GENERAL: The patient is alert and oriented x3, not in any acute distress. Well developed, well nourished. HEENT: Pupils are round and equally reacting to light. EOMI. No scleral icterus. No conjunctival pallor. Normocephalic, atraumatic. No pharyngeal erythema. No thyromegaly. CARDIOVASCULAR: S1 and S2 present. No murmurs, rubs, or gallops. PULMONARY: Mild diffuse crackles bilaterally ABDOMEN: Soft, nontender, nondistended, normoactive bowel sounds. No palpable organomegaly. MUSCULOSKELETAL: No joint swelling or deformity. EXTREMITIES: No cyanosis, clubbing, does have 2+ pitting pedal edema NEUROLOGICAL: Gross neurological examination did not reveal any focal deficits. SKIN: No rashes. Results CBC & Chem 7: 08/27/19 15:26 08/27/19 15: Labs: Abnormal Lab Results - Last 24 Hours (Table) 08/27/19 08/27/19 08/27/19 Range/Units 15:26 15:26 15: RDW 16.0 H (11.5-15.5) % INR 1.2 H (<1.2) D-Dimer 1.20 H (<0.60) mg/L FEU Sodium 135 L (137-145) mmol/L Chloride 91 L (98-107) mmol/L Carbon Dioxide 34 H (22-30) mmol/L BUN 18 H (7-17) mg/dL Glucose 138 H (74-99) mg/dL AST 52 H (14-36) U/L Assessment and Plan Plan: -Pedal edema is to be extensive and probably due to venous insufficiency d-dimer is negative no significant JVD, patient will be started on IV Lasix once her edema is better probably can be discharged on oral Lasix patient is on oral Lasix although have not helping her bilateral pedal edema. -Shortness of breath appears to be from pulmonary fibrosis patient remains on 5 L no further intervention at this time is no evidence of new infiltrates or pneumonia antibiotics probably can be discontinued tomorrow we'll continue for 1 more day as recommended by pulmonology pulmonology evaluated the patient -Recent COVID 19 infection prolonged hospitalization ARDS from Covid 19 and possible Covid 19 related pulmonary fibrosis into chronic hypoxic respiratory failure requiring 5 L of oxygen which will be continued. Patient is on also on anticoagulation because of Covid 19 this anticoagulation probably can be discontinued after this hospitalization -Type 2 diabetes mellitus patient will be resumed on home regimen along with sliding scale -COPD without any significant acceleration -Obesity
--- NOTE | 2019-08-28 14:10 | US ---
EXAMINATION TYPE: US venous doppler duplex LE DATE OF EXAM: 08/28/2019 12:24 PM COMPARISON: NONE CLINICAL HISTORY: dvt. SIDE PERFORMED: Bilateral TECHNIQUE: The lower extremity deep venous system is examined utilizing real time linear array sonog nadeem with graded compression, doppler sonography and color-flow sonography. VESSELS IMAGED: External Iliac Vein (EIV) Common Femoral Vein Deep Femoral Vein Greater Saphenous Vein * Femoral Vein Popliteal Vein Small Saphenous Vein * Proximal Calf Veins (* superficial vessels) Right Leg: Negative for DVT Left Leg: Negative for DVT IMPRESSION: 1. No diagnostic evidence of DVT as visualized.
[2019-08-28] MEDS: FUROSEMIDE 10 MG/ML 4 ML VIAL IV SCH ×2 (15:08→20:04)
[2019-08-28] MEDS ORDERED: amLODIPine 5 MG TAB PO STA (15:26)
[2019-08-28] MEDS ORDERED: METOPROLOL TARTRATE 25 MG TAB PO STA (15:27)
[2019-08-28] MEDS: oxyCODONE-APAP 10-325MG 1 EACH TAB PO PRN ×2 (15:36→23:35)
[2019-08-28] MEDS ORDERED: LEVOFLOXACIN 750MG-D5W PMX 750 MG in DEXTROSE/WATER 1 150ML.BAG IVPB SCH (18:00)
[2019-08-28] MEDS ORDERED: VANCOMYCIN IV PER PHARMACY 1 EACH MISC MISCELLANE PRN (18:56)
[2019-08-28] MEDS ORDERED: VANCOMYCIN 2,500 MG in SODIUM CHLORIDE 0.9% 500 ML 500 ML IVPB ONE (19:15)
[2019-08-28] MEDS: amLODIPine 5 MG TAB PO SCH (20:04)
[2019-08-28 20:18] LABS: Glucose,Whole Blood 208 mg/dL (75-99)
[2019-08-28] MEDS: INSULIN ASPART (NovoLOG) 100 UNIT/ML VIAL SQ SCH (20:45)
[2019-08-29] MEDS: PIPERACILLIN-TAZOBACTAM 3.375 GM in SODIUM CHLORIDE 0.9% 100 ML IVPB SCH ×2 (04:50→11:21)
[2019-08-29] MEDS ORDERED: VANCOMYCIN 2,000 MG in SODIUM CHLORIDE 0.9% 500 ML 500 ML IVPB SCH (06:00)
[2019-08-29] MEDS: INSULIN ASPART (NovoLOG) 100 UNIT/ML VIAL SQ SCH ×4 (07:50→20:55)
[2019-08-29] MEDS: ALBUTEROL NEBULIZED 2.5 MG/3 ML INHALATION SCH ×5 (07:50→19:13)
[2019-08-29 07:53] LABS: Glucose,Whole Blood 161 mg/dL (75-99)
[2019-08-29] MEDS: GLIMEPIRIDE 1 MG TAB PO SCH (08:25)
[2019-08-29] MEDS: RIVAROXABAN 20 MG TAB PO SCH (08:25)
[2019-08-29] MEDS: METOPROLOL TARTRATE 25 MG TAB PO SCH (08:25)
[2019-08-29] MEDS: amLODIPine 5 MG TAB PO SCH ×2 (08:25→20:54)
[2019-08-29] MEDS: FUROSEMIDE 10 MG/ML 4 ML VIAL IV SCH ×2 (08:26→20:55)
[2019-08-29] MEDS: oxyCODONE-APAP 10-325MG 1 EACH TAB PO PRN (08:38)
[2019-08-29 09:11] LABS: African American GFR (CKD) >90 (>60 ml/min/1.73 sqM); Anion Gap 9 mmol/L; Blood Urea Nitrogen 13 mg/dL (7-17); Calcium 8.8 mg/dL (8.4-10.2); Carbon Dioxide 37 mmol/L (22-30); Chloride 91 mmol/L (98-107); Glucose 181 mg/dL (74-99); Non-African American GFR(CKD) >90 (>60 ml/min/1.73 sqM); Potassium 2.8 mmol/L (3.5-5.1); Sodium 137 mmol/L (137-145)
[2019-08-29 11:10] LABS: Glucose,Whole Blood 148 mg/dL (75-99)
[2019-08-29] MEDS ORDERED: Potassium Replacement Protocol 1 EACH MISC MISCELLANE PRN (12:57)
[2019-08-29] MEDS ORDERED: ONDANSETRON 4 MG/2 ML VIAL IVP PRN (13:00)
[2019-08-29] MEDS: POTASSIUM CHLORIDE ER 20 MEQ TAB.ER PO SCH ×3 (13:10→17:01)
--- NOTE | 2019-08-29 13:11 | ECHOF ---
Referral Reason:pulmnary hypertension, LV dysfunction MEASUREMENTS -------- HEIGHT: 172.7 cm WEIGHT: 148.3 kg BP: 112/63 RVIDd: 3.0 cm (< 3.3) IVSd: 1.5 cm (0.6 - 1.1) LVIDd: 3.4 cm (3.9 - 5.3) LVPWd: 1.5 cm (0.6 - 1.1) IVSs: 1.9 cm LVIDs: 2.1 cm LVPWs: 2.0 cm Ao Diam: 3.2 cm (2.0 - 3.7) AV Cusp: 2.0 cm (1.5 - 2.6) LA Diam: 2.8 cm (2.7 - 3.8) MV EXCURSION: 19.783 mm (> 18.000) MV EF SLOPE: 115 mm/s (70 - 150) EPSS: 0.6 cm MV E Valdemar: 0.83 m/s MV DecT: 56 ms MV A Valdemar: 0.37 m/s MV E/A Ratio: 2.23 RAP: 5.00 mmHg RVSP: 17.13 mmHg FINDINGS -------- Resting tachycardia (HR>100bpm). This was a technically adequate study. The left ventricular size is normal. There is moderate concentric left ventricular hypertrophy. O verall left ventricular systolic function is normal with, an EF between 55 - 60 %. The right ventricle is normal in size. The left atrial size is normal. The right atrial size is normal. Unable to visualize the septum. Aortic valve is trileaflet and is mildly thickened. The mitral valve is normal. The mitral valve leaflets are mildly thickened. Mild mitral annular c alcification present. Mild mitral regurgitation is present. The tricuspid valve appears structurally normal. Mild tricuspid regurgitation present. Right vent ricular systolic pressure is normal at < 35 mmHg. The pulmonic valve was not well visualized. The aortic root size is normal. IVC Not well visulized. There is no pericardial effusion. CONCLUSIONS -------- 1. Resting tachycardia (HR>100bpm). 2. This was a technically adequate study. 3. The left ventricular size is normal. 4. There is moderate concentric left ventricular hypertrophy. 5. Overall left ventricular systolic function is normal with, an EF between 55 - 60 %. 6. The right ventricle is normal in size. 7. The left atrial size is normal. 8. The right atrial size is normal. 9. Unable to visualize the septum. 10. Aortic valve is trileaflet and is mildly thickened. 11. The mitral valve is normal. 12. The mitral valve leaflets are mildly thickened. 13. Mild mitral annular calcification present. 14. Mild mitral regurgitation is present. 15. The tricuspid valve appears structurally normal. 16. Mild tricuspid regurgitation present. 17. Right ventricular systolic pressure is normal at < 35 mmHg. 18. The pulmonic valve was not well visualized. 19. The aortic root size is normal. 20. IVC Not well visulized. 21. There is no pericardial effusion. MOTOR ASSEMBLER: Cheyenne Stokes RDCS
--- NOTE | 2019-08-29 13:20 | P.PN ---
Subjective 59-year-old pleasant female known to me from her prolonged hospitalization at [facility] for COVID 19. Patient was intubated for prolonged period of time patient had ARDS at the time, was discharged after a prolonged hospital physician for inpatient stabilization as well and was discharged on 5 L of oxygen and patient remains on 5 L of oxygen and and patient did have pulmonary fibrosis and fibrotic changes. Patient comes in with bilateral pedal edema normal BNP did not appreciate any JVD and elevated blood pressure when questioned patient does complain of shortness of breath which is bit worse than usual. Patient is afebrile the Neck. CAT scan of the chest was obtained which showed multiple infiltrates consistent with some pulmonary fibrosis may be residual pneumonia from her last hospitalization. Patient denied any fever chills significant sputum production does have cough. 08/29/2019 Patient is feeling much better today patient pedal edema improved patient is not requiring oxygen at rest today. Patient is hypokalemic because of Lasix which will be replaced and patient had a normal ejection fraction of 55-30% Constitutional: Denied any fatigue denied any fever. Cardio vascular: denied any chest pain, palpitations Gastrointestinal denied any nausea vomiting Pulmonary: Denied any shortness of breath cough Neurologic denied any new focal deficits All inpatient medications were reviewed and appropriate changes in these medications as dictated in the interval history and assessment and plan. Objective - Vital Signs Vital signs: Vital Signs Temp 98.5 F 08/29/19 07:00 Pulse 104 H 08/29/19 11:39 Resp 17 08/29/19 08:00 BP 132/81 08/29/19 07:00 Pulse Ox 93 L 08/29/19 07:00 Intake & Output 08/28/19 08/29/19 08/29/19 18:59 06:59 18:59 Intake Total 500 Balance 500 Intake: Intake, IV Titration 500 Amount Vancomycin 2,500 mg In 500 Sodium Chloride 0.9% 500 ml 500 ml @ 167 mls/hr IVPB ONCE ONE Rx#: [id number] Other: Voiding Method Toilet Toilet # Voids 1 2 - Exam PHYSICAL EXAMINATION: GENERAL: The patient is alert and oriented x3, not in any acute distress. Well developed, well nourished. HEENT: Pupils are round and equally reacting to light. EOMI. No scleral icterus. No conjunctival pallor. Normocephalic, atraumatic. No pharyngeal erythema. No thyromegaly. CARDIOVASCULAR: S1 and S2 present. No murmurs, rubs, or gallops. PULMONARY: Clear to auscultation of crackles or wheezing ABDOMEN: Soft, nontender, nondistended, normoactive bowel sounds. No palpable organomegaly. MUSCULOSKELETAL: No joint swelling or deformity. EXTREMITIES: No cyanosis, clubbing, or pedal edema improved NEUROLOGICAL: Gross neurological examination did not reveal any focal deficits. SKIN: No rashes. - Labs CBC & Chem 7: 08/27/19 15:26 08/29/19 08:08 Labs: Abnormal Lab Results - Last 24 Hours (Table) 08/28/19 08/29/19 08/29/19 Range/Units 20:15 07:42 08:08 Potassium 2.8 L (3.5-5.1) mmol/L Chloride 91 L (98-107) mmol/L Carbon Dioxide 37 H (22-30) mmol/L Glucose 181 H (74-99) mg/dL POC Glucose (mg/dL) 208 H 161 H (75-99) mg/dL 08/29/19 Range/Units 11:08 Potassium (3.5-5.1) mmol/L Chloride (98-107) mmol/L Carbon Dioxide (22-30) mmol/L Glucose (74-99) mg/dL POC Glucose (mg/dL) 148 H (75-99) mg/dL Microbiology - Last 24 Hours (Table) 08/27/19 18:58 Blood Culture Gram Stain - Preliminary Blood Blood Culture - Preliminary Coagulase Negative Staph 08/27/19 18:58 Blood Culture - Final Blood Assessment and Plan Plan: -Pedal edema is to be extensive and probably due to venous insufficiency d-dimer is negative no significant JVD, patient will continued on IV Lasix today and possibility of discharge tomorrow -Hypokalemia: Potassium will be replaced secondary to Lasix -Shortness of breath appears to be from pulmonary fibrosis patient also requirements have come down significantly although patient may have pulmonary fibrosis related to Covid 19 -Recent COVID 19 infection prolonged hospitalization ARDS from Covid 19 and possible Covid 19 related pulmonary fibrosis into chronic hypoxic respiratory failure requiring 5 L of oxygen at home and her oxygen requirements have significantly come down now. Patient is on also on anticoagulation because of Covid 19 this anticoagulation probably can be discontinued after this hospitalization -Type 2 diabetes mellitus patient will be resumed on home regimen along with sliding scale -COPD without any significant acceleration -Obesity
[2019-08-29 16:34] LABS: Glucose,Whole Blood 147 mg/dL (75-99)
[2019-08-29 20:36] LABS: Glucose,Whole Blood 209 mg/dL (75-99)
--- NOTE | 2019-08-30 01:33 | P.CONS ---
History of Present Illness - Reason for Consult Consult date: 08/29/19 sepsis/bacteremia Requesting physician: Desire Lemus - Chief Complaint shortness of breath and leg swelling x days - History of Present Illness Patient is a 59-year-old female who recently was admitted at [facility] patient was diagnosed with acute COVID-19 pneumonia and the patient did have prolonged intubation for the same patient subsequently rec overed and got discharged from the hospital patient is now presenting to the [facility] ER 2 days ago with a chief complaints of increasing shortness of breath in addition to the lower extremity swelling that has been getting worse patient apparently has been evaluated on the day of admission the hospital by the fixture repairer fabricator who advised the patient to go to the hospital to evaluate for blood clots in the leg patient was noticed to have a blood pressure to be elevated in the outpatient setting as well on arrival to the hospital patient has been afebrile and her white count has been normal no fever has been recorded with admission she did have a chest x-ray which showed new linear left midlung opacity may represent developing pneumonia patient did have nursing Dopplers were negative for DVT a CT angiogram was negative for PE however did show some extensive bilateral anterior pulmonary infiltrate consistent with pneumonia patient has been admitted to the hospital has been started on Lasix was initially started on Zosyn that has been discontinued today she also have positive blood culture with gram-positive cocci that has prompted this infectious disease consultation consult for possible sepsis. Review of Systems Positive point has been mentioned in HPI rest of the systems are negative Past Medical History Past Medical History: Coronary Artery Disease (CAD), COPD, Diabetes Mellitus, Hypertension, Renal Disease Additional Past Medical History / Comment(s): Chronic low back pain, obesity, type 2 diabetes, suspected renal failure. Past BOAT WORKER history: Genital herpes but she states she has not had any outbreaks for years. History of Any Multi-Drug Resistant Organisms: None Reported Past Surgical History: Hysterectomy, Joint Replacement Additional Past Surgical History / Comment(s): DESMOND/BSO in 2006, bilateral knee replacements, vascular leg stents, D&C. Past Psychological History: No Psychological Hx Reported Smoking Status: Never smoker Past Alcohol Use History: None Reported Past Drug Use History: None Reported - Past Family History Father Family Medical History: Cancer, Myocardial Infarction (DE) Additional Family Medical History / Comment(s): Esophageal cancer Mother Family Medical History: Rheumatoid Arthritis (RA) Additional Family Medical History / Comment(s): Gout. Maternal aunt had lung cancer and breast cancer. Daughter(s) Additional Family Medical History / Comment(s): Depression. Medications and Allergies Home Medications Medication Instructions Recorded Confirmed Type Chlorthalidone 25 mg PO QAM 05/20/19 08/27/19 History Furosemide [Lasix] 40 mg PO BID 05/20/19 08/27/19 History Glimepiride [Amaryl] 1 mg PO AC-BRKFST 05/20/19 08/27/19 History Rivaroxaban [Xarelto] 20 mg PO DAILY 05/20/19 08/27/19 History oxyCODONE-APAP 10-325MG [Percocet 1 tab PO Q8HR PRN 05/20/19 08/27/19 History 10-325 mg] Albuterol Inhaler [Ventolin Hfa 2 puff INHALATION RT-Q6H PRN 08/27/19 08/27/19 History Inhaler] Methocarbamol [Robaxin] 500 mg PO BID PRN 08/27/19 08/27/19 History Metoprolol Tartrate 25 mg PO DAILY 08/27/19 08/27/19 History Allergies Allergy/AdvReac Type Severity Reaction Status Date / Time cephalexin [From Keflex] AdvReac Rash/Hives Verified 08/27/19 23:07 Sulfa (Sulfonamide AdvReac Rash/Hives Verified 08/27/19 23:07 Antibiotics) Physical Exam Vitals: Vital Signs Temp Pulse Pulse Resp BP Pulse Ox 08/29/19 19:49 98.6 F 137 H 16 134/75 94 L 08/29/19 16:02 18 08/29/19 15:37 96 08/29/19 15:28 96 08/29/19 15:00 98.0 F 94 17 126/61 94 L 08/29/19 11:39 104 H 08/29/19 11:26 98 08/29/19 08:05 100 08/29/19 08:00 17 08/29/19 07:52 106 H 08/29/19 07:00 98.5 F 100 17 132/81 93 L 08/29/19 03:36 98.2 F 97 17 112/63 91 L 08/29/19 03:00 18 Intake and Output 08/29/19 08/29/19 08/30/19 14:59 22:59 06:59 Intake Total 100 Balance 100 Intake: Oral 100 Other: Voiding Method Toilet Toilet # Voids 2 2 GENERAL DESCRIPTION: Middle-aged female up in the chair, no distress. No tachypnea or accessory muscle of respiration use. HEENT: Shows Pallor , no scleral icterus. Oral mucous membrane is dry. NECK: Trachea central, no thyromegaly. LUNGS: Unlabored breathing. Decreased breath sounds at bases. No wheeze or crackle. HEART: S1, S2, regular rate and rhythm. ABDOMEN: Soft, no tenderness , guarding or rigidity EXTREMITIES: 2+ edema of feet. SKIN: No rash, no masses palpable. NEUROLOGICAL: The patient is awake, alert, oriented x3, mood and affect normal. Results CBC & Chem 7: 08/27/19 15:26 08/29/19 08:08 Labs: Abnormal Lab Results - Last 24 Hours (Table) 08/29/19 08/29/19 08/29/19 Range/Units 07:42 08:08 11:08 Potassium 2.8 L (3.5-5.1) mmol/L Chloride 91 L (98-107) mmol/L Carbon Dioxide 37 H (22-30) mmol/L Glucose 181 H (74-99) mg/dL POC Glucose (mg/dL) 161 H 148 H (75-99) mg/dL 08/29/19 08/29/19 Range/Units 16:32 20:33 Potassium (3.5-5.1) mmol/L Chloride (98-107) mmol/L Carbon Dioxide (22-30) mmol/L Glucose (74-99) mg/dL POC Glucose (mg/dL) 147 H 209 H (75-99) mg/dL Microbiology - Last 24 Hours (Table) 08/27/19 18:58 Blood Culture Gram Stain - Preliminary Blood Blood Culture - Preliminary Coagulase Negative Staph Assessment and Plan Assessment: 1-patient presented hospital with increasing shortness of breath along with lower extremity swelling more likely due to fluid overload patient is clinically not behaving as pneumonia with no cough or sputum production no fever or elevated white count abnormal x-ray possible pulmonary fibrosis were related to the fluid overload 2-positive blood culture with coagulase-negative staph likely skin contaminant (1) Coagulase negative Staphylococcus bacteremia Current Visit: Yes Status: Acute Code(s): R78.81 - BACTEREMIA; B95.7 - OTH STAPHYLOCOCCUS THE CAUSE OF DISEASES [facility] Code(s): 694993940258 Plan: 1-blood culture repeated to document clearance of bacteremia 2-no need for vancomycin or any systemic antibiotics as clinical suspicion low for pneumonia We will follow on clinical condition and cultures to further adjust medication if needed Thank you for this consultation we will follow the patient along with you Time with Patient: Greater than 30
[2019-08-30] MEDS: POTASSIUM CHLORIDE ER 20 MEQ TAB.ER PO SCH ×9 (03:14→13:56)
[2019-08-30 07:23] LABS: Glucose,Whole Blood 144 mg/dL (75-99)
[2019-08-30 08:01] VITALS: TEMP 98.1
[2019-08-30] MEDS: oxyCODONE-APAP 10-325MG 1 EACH TAB PO PRN (08:03)
[2019-08-30] MEDS: METOPROLOL TARTRATE 25 MG TAB PO SCH (08:03)
[2019-08-30] MEDS: RIVAROXABAN 20 MG TAB PO SCH (08:04)
[2019-08-30] MEDS: amLODIPine 5 MG TAB PO SCH (08:04)
[2019-08-30] MEDS: INSULIN ASPART (NovoLOG) 100 UNIT/ML VIAL SQ SCH ×2 (08:04→12:02)
[2019-08-30] MEDS: GLIMEPIRIDE 1 MG TAB PO SCH (08:04)
[2019-08-30] MEDS: FUROSEMIDE 10 MG/ML 4 ML VIAL IV SCH (08:04)
[2019-08-30] MEDS: ALBUTEROL NEBULIZED 2.5 MG/3 ML INHALATION SCH ×3 (09:06→16:08)
[2019-08-30 11:31] LABS: Glucose,Whole Blood 138 mg/dL (75-99)
[2019-08-30] MEDS ORDERED: METOPROLOL TARTRATE 25 MG TAB PO STA (12:23)
--- NOTE | 2019-08-30 12:31 | P.DS ---
Providers Date of admission: 08/27/19 18:18 Attending physician: Kerrie Barber Consults: 08/28/19 08:30 Consult Physician Urgent Consulting Provider: Jair Salcido Consult Reason/Comments: shortness of breath Do you want consulting provider notified?: Yes 08/28/19 18:57 Consult Physician Urgent Consulting Provider: Sonia Mckeon Consult Reason/Comments: Sepsis Do you want consulting provider notified?: Yes Primary care physician: Joyce Davenport [facility] Course: 59-year-old pleasant female known to me from her prolonged hospitalization at [facility] for COVID 19. Patient was intubated for prolonged period of time patient had ARDS at the time, was discharged after a prolonged hospital physician for inpatient stabilization as well and was discharged on 5 L of oxygen and patient remains on 5 L of oxygen and and patient did have pulmonary fibrosis and fibrotic changes. Patient comes in with bilateral pedal edema normal BNP did not appreciate any JVD and elevated blood pressure when questioned patient does complain of shortness of breath which is bit worse than usual. Patient is afebrile the Neck. CAT scan of the chest was obtained which showed multiple infiltrates consistent with some pulmonary fibrosis may be residual pneumonia from her last hospitalization. Patient denied any fever chills significant sputum production does have cough. 08/29/2019 Patient is feeling much better today patient pedal edema improved patient is not requiring oxygen at rest today. Patient is hypokalemic because of Lasix which will be replaced and patient had a normal ejection fraction of 55-30% 08/30/2019 Patient has coagulase-negative staph in her blood cultures as today ankle medicine was discontinued as this is a contamination. Patient is clinically doing well her pedal edema improved although patient heart rate went up earlier today which is sinus tachycardia all change her metoprolol to 25 twice a day. Patient was only taking 40 mg daily at home of Lasix which will be changed to 40 twice a day along with change in potassium to 20 twice a day. Will ablate the patient and see if patient will require oxygen even if she requires she may only need 2 L at 5 L patient is saturating well on room air at rest. PHYSICAL EXAMINATION: GENERAL: The patient is alert and oriented x3, not in any acute distress. Well developed, well nourished. HEENT: Pupils are round and equally reacting to light. EOMI. No scleral icterus. No conjunctival pallor. Normocephalic, atraumatic. No pharyngeal erythema. No thyromegaly. CARDIOVASCULAR: S1 and S2 present. No murmurs, rubs, or gallops. PULMONARY: Chest is clear to auscultation, no wheezing or crackles. ABDOMEN: Soft, nontender, nondistended, normoactive bowel sounds. No palpable organomegaly. MUSCULOSKELETAL: No joint swelling or deformity. EXTREMITIES: No cyanosis, clubbing, pedal edema improved significantly NEUROLOGICAL: Gross neurological examination did not reveal any focal deficits. SKIN: No rashes. Assessment and Plan Plan: -Pedal edema is to be extensive and probably due to venous insufficiency d-dimer is negative no significant JVD, patient will be discharged on Lasix increase the dose of Lasix -Hypokalemia: Potassium will be replaced secondary to Lasix -Shortness of breath appears to be from pulmonary fibrosis patient also requirements have come down significantly although patient may have pulmonary fibrosis related to Covid 19 -Recent COVID 19 infection prolonged hospitalization ARDS from Covid 19 and possible Covid 19 related pulmonary fibrosis into chronic hypoxic respiratory failure requiring 5 L of oxygen at home and her oxygen requirements have significantly come down now. Patient is on also on anticoagulation because of Covid 19 this anticoagulation probably can be discontinued after this hospitalization -Type 2 diabetes mellitus patient will be resumed on home regimen along with sliding scale -COPD without any significant exacerbation -Obesity Patient Condition at Discharge: Serious Plan - Discharge Summary New Discharge Prescriptions: New Potassium Chloride ER [K-Dur 20] 20 meq PO BID #60 tab Continue Rivaroxaban [Xarelto] 20 mg PO DAILY Furosemide [Lasix] 40 mg PO BID oxyCODONE-APAP 10-325MG [Percocet 10-325 mg] 1 tab PO Q8HR PRN PRN Reason: Pain Glimepiride [Amaryl] 1 mg PO AC-BRKFST Methocarbamol [Robaxin] 500 mg PO BID PRN PRN Reason: Pain Albuterol Inhaler [Ventolin Hfa Inhaler] 2 puff INHALATION RT-Q6H PRN PRN Reason: Shortness Of Breath Changed Metoprolol Tartrate 25 mg PO BID #0 Discontinued Chlorthalidone 25 mg PO QAM Discharge Medication List Furosemide [Lasix] 40 mg PO BID 05/20/19 [History] Glimepiride [Amaryl] 1 mg PO AC-BRKFST 05/20/19 [History] Rivaroxaban [Xarelto] 20 mg PO DAILY 05/20/19 [History] oxyCODONE-APAP 10-325MG [Percocet 10-325 mg] 1 tab PO Q8HR PRN 05/20/19 [History] Albuterol Inhaler [Ventolin Hfa Inhaler] 2 puff INHALATION RT-Q6H PRN 08/27/19 [History] Methocarbamol [Robaxin] 500 mg PO BID PRN 08/27/19 [History] Metoprolol Tartrate 25 mg PO BID #0 08/30/19 [Rx] Potassium Chloride ER [K-Dur 20] 20 meq PO BID #60 tab 08/30/19 [Rx] Follow up Appointment(s)/Referral(s): Issac Cook MD [Primary Care Provider] - 3 Days (office closed Please call to make appointment) Discharge Disposition: HOME SELF-CARE
[2019-08-30 13:57] VITALS: PULSE 91
[2019-08-30 15:27] VITALS: BP 112/71; RESP 16
--- NOTE | 2019-08-30 15:47 | PN ---
PROGRESS NOTE DATE OF SERVICE: 08/30/2019 REASON FOR FOLLOW UP: Positive blood culture. INTERVAL HISTORY: The patient is currently afebrile. The patient is feeling much better. She is breathing comfortably. Did mention her leg swelling has improved. No chest pain or shortness of breath. No cough. No abdominal pain or diarrhea. PHYSICAL EXAMINATION: Blood pressure 139/88 with a pulse of 74, temperature 98.1. She is 97% on 2 L nasal cannula. General description is a middle-aged female up in the bed in no distress. Respiratory system: Unlabored breathing, decreased breath sounds at the base. No wheeze. HEART: S1, S2. Regular rate and rhythm. ABDOMEN: Soft, no tenderness. LABS: Potassium 3.3. Blood culture coagulase negative Staph. DIAGNOSTIC IMPRESSION AND PLAN: Patient with a positive blood culture with coagulase negative staph likely skin contaminant. The patient has no clinical disease to go along with it. She has no fever or elevated white count. Currently being monitored off antibiotic therapy. No need for antibiotic on discharge. MMODL / IJN: [id number] /
--- NOTE | 2019-09-02 17:24 | CDI ---
Documentation Clarification Form Date: 09/02/19 From: Delicia Marcus CCS Phone: If you have a question about this query, please contact Miracle Carlson, Fire Warden at [phone] between 8am and 5pm. Admit Date: 08/27/19 Discharge Date: 08/30/19 Patient Name: Keshia Smith Visit Number: [id number] ATTENTION: The Clinical Documentation Specialists (CDI) and [facility] Coding Staff appreciate your assistance in clarifying documentation. Please respond to the clarification below the line at the bottom and electronically sign. The CDI & [facility] Coding staff will review the response and follow-up if needed. Please note: Queries are made part of the Legal Health Record. If you have any questions, please contact the author of this message via ITS. Dear Dr. Barber, CHF is documented in the Consult. Consult 08/27 documents: Patient has prior history of hypertensive heart failure Shortness of breath likely related to congestive heart failure acute on chronic systolic heart failure versus diastolic heart failure. Will get echocardiogram suspect heart failure acute on chronic History/Risk Factors: Recent COVID, COPD, HTN, Chronic Resp Failure, CAD, DM Clinical Indicators: Fluid overload, Edema VS/Pulse OX: BP 142/90, HI 97, RR 21, O2 Sat 100 BNP: 57, 67 Echocardiogram Results: The left ventricular size is normal.There is moderate concentric left ventricular hypertrophy.Overall left ventricular systolic function is normal with, an EF between 55 - 60 %. Chest X Ray: New linear left midlung opacities that may represent developing pneumonia or atelectasis. Treatment: Lasix 40 mg IV Q 12 HR In your professional opinion, can you please clarify the acuity and type of CHF if known? Systolic Heart Failure: Acute Chronic Acute on Chronic Diastolic Heart Failure: Acute Chronic Systolic & Diastolic Heart Failure: Acute Chronic Acute on Chronic Heart Failure Unable to Determine Other, please specify Diastolic Heart Failure:Acute on Chronic MTDD
== END 2019-08-30 16:43 | disposition home or self-care (01) | DRG 292 ==
LOC: EC 14:59 → 4SSUR 18:18
PROVIDERS: ADMIT Internal Medicine; ATTEND Internal Medicine
DX: I11.0 Hypertensive heart disease with heart failure (principal); J96.11 Chronic respiratory failure with hypoxia; R78.81 Bacteremia; Z68.42 Body mass index [BMI] 45.0-49.9, adult; I87.2 Venous insufficiency (chronic) (peripheral); I50.33 Acute on chronic diastolic (congestive) heart failure; Z11.59 Encounter for screening for other viral diseases; J84.10 Pulmonary fibrosis, unspecified; J44.9 Chronic obstructive pulmonary disease, unspecified; E66.01 Morbid (severe) obesity due to excess calories; I25.10 Atherosclerotic heart disease of native coronary artery without angina pectoris; E11.9 Type 2 diabetes mellitus without complications; G89.29 Other chronic pain; M54.5 Low back pain; A60.00 Herpesviral infection of urogenital system, unspecified; Z96.653 Presence of artificial knee joint, bilateral; B95.7 Other staphylococcus as the cause of diseases classified elsewhere; E87.6 Hypokalemia; T50.1X5A Adverse effect of loop [high-ceiling] diuretics, initial encounter; R00.0 Tachycardia, unspecified; Z79.01 Long term (current) use of anticoagulants; Z79.899 Other long term (current) drug therapy; Z79.84 Long term (current) use of oral hypoglycemic drugs; Z86.19 Personal history of other infectious and parasitic diseases; Z86.718 Personal history of other venous thrombosis and embolism; Z99.81 Dependence on supplemental oxygen; Z90.710 Acquired absence of both cervix and uterus; Z95.828 Presence of other vascular implants and grafts; Z87.448 Personal history of other diseases of urinary system; Z88.1 Allergy status to other antibiotic agents; Z88.2 Allergy status to sulfonamides; Z82.61 Family history of arthritis; Z82.49 Family history of ischemic heart disease and other diseases of the circulatory system; Z80.0 Family history of malignant neoplasm of digestive organs; Z80.3 Family history of malignant neoplasm of breast; Z80.1 Family history of malignant neoplasm of trachea, bronchus and lung; Z81.8 Family history of other mental and behavioral disorders
CPT/HCPCS: 36415; 71045; 71046; 71275; 80048; 80053; 83605; 83880; 84132; 84484; 85025; 85379; 85610; 85730; 87040; 87077; 87186; 93005; 93306; 93970; 94640; 96361; 96365; 96366; 96367; 96372; 99285

== ENCOUNTER 2019-10-11 13:32 | Emergency (ER) | payer OTHER ==
[2019-10-11 13:41] VITALS: TEMP 98.7
--- NOTE | 2019-10-11 14:07 | ED ---
SOB HPI - General Chief Complaint: Shortness of Breath Stated Complaint: SOB Time Seen by Provider: 10/11/19 13:33 Source: patient, EMS Mode of arrival: EMS Limitations: no limitations - History of Present Illness Initial Comments: 59-year-old male presenting today for chief complaint of shortness of breath with ambulating and coughing. Patient states that she was diagnosed with covid 19 infection hospitalized for over one month mid-May. Patient states that she was not discharged until July. Patient states that since the infection has had chronic shortness of breath she states it's and slightly increased for the past week and she states a month ago she was diagnosed with a pneumonia. Patient denies any leg swelling she denies any hot cyst she has a chest pain pressure. Deep inspiration. Patient states that she feels like her lungs are not stretching fully, like there is resistance when she takes a deep breath. Admits to cough. Denies fevers, or sputum production. Patient denies rigors chills and admits to fatigue. Patient denies recent surgeries or immobilization, denies history of CHF, active cancer or DVT/PE. Patient upon arrival does not appears in respiratory distress. Pt is currently on 2-3 L home O2 since discharge from hospital after covid. See's personal care assistant Dr. Salcido. - Related Data Home Medications Medication Instructions Recorded Confirmed Furosemide [Lasix] 40 mg PO BID 05/20/19 08/27/19 Glimepiride [Amaryl] 1 mg PO AC-BRKFST 05/20/19 08/27/19 oxyCODONE-APAP 10-325MG [Percocet 1 tab PO Q8HR PRN 05/20/19 08/27/19 10-325 mg] Albuterol Inhaler [Ventolin Hfa 2 puff INHALATION RT-Q6H PRN 08/27/19 08/27/19 Inhaler] Methocarbamol [Robaxin] 500 mg PO BID PRN 08/27/19 08/27/19 Rivaroxaban [Xarelto] 15 mg PO BID 08/31/19 08/31/19 amLODIPine [Norvasc] 10 mg PO DAILY 08/31/19 08/31/19 Previous Rx's Medication Instructions Recorded Metoprolol Tartrate 25 mg PO BID #0 08/30/19 Potassium Chloride ER [K-Dur 20] 20 meq PO BID #60 tab 08/30/19 predniSONE 50 mg PO DAILY 3 Days #3 tab 10/11/19 Allergies Allergy/AdvReac Type Severity Reaction Status Date / Time cephalexin [From Keflex] AdvReac Rash/Hives Verified 08/27/19 23:07 Sulfa (Sulfonamide AdvReac Rash/Hives Verified 08/27/19 23:07 Antibiotics) Review of Systems ROS Statement: Those systems with pertinent positive or pertinent negative responses have been documented in the HPI. ROS Other: All systems not noted in ROS Statement are negative. Past Medical History Past Medical History: Coronary Artery Disease (CAD), COPD, Diabetes Mellitus, Hypertension, Renal Disease Additional Past Medical History / Comment(s): Chronic low back pain, obesity, type 2 diabetes, suspected renal failure. Past [employer]IMARY [employer] LIB[employer]IAN history: Genital herpes but she states she has not had any outbreaks for years. History of Any Multi-Drug Resistant Organisms: None Reported Past Surgical History: Hysterectomy, Joint Replacement Additional Past Surgical History / Comment(s): DESMOND/BSO in 2005, bilateral knee replacements, vascular leg stents, D&C. Past Psychological History: No Psychological Hx Reported Smoking Status: Never smoker Past Alcohol Use History: None Reported Past Drug Use History: None Reported - Past Family History Father Family Medical History: Cancer, Myocardial Infarction (NM) Additional Family Medical History / Comment(s): Esophageal cancer Mother Family Medical History: Rheumatoid Arthritis (RA) Additional Family Medical History / Comment(s): Gout. Maternal aunt had lung cancer and breast cancer. Daughter(s) Additional Family Medical History / Comment(s): Depression. General Exam - General Exam Comments Initial Comments: General: The patient is awake and alert, in no distress, and does not appear acutely ill. Eye: +3 mm pupils are equal, round and reactive to light, extra-ocular movements are intact. No nystagmus. There is normal conjunctiva bilaterally. No signs of icterus. Ears, nose, mouth and throat: There are moist mucous membranes and no oral lesions. Neck: The neck is supple, there is no tenderness or JVD. Cardiovascular: There is a regular rate and rhythm. No murmur, rub or gallop is appreciated. Respiratory: Lungs are clear to auscultation, respirations are non-labored, breath sounds are equal. No wheezes, stridor, rales, or rhonchi. No retractions no abdominal breathing Gastrointestinal: Soft, non-distended, non-tender abdomen without masses or organomegaly noted. There is no rebound or guarding present. Musculoskeletal: Normal ROM, no tenderness. Strength 5/5. Sensation intact. Radial pulses equal bilaterally 2+. Neurological: A&O x 3. CN II-XII intact grossly, There are no obvious motor or sensory deficits. Coordination appears grossly intact. Speech is normal. Skin: Skin is warm and dry and no rashes or lesions are noted. No calf pain no leg swelling. Psychiatric: Cooperative, appropriate mood & affect, normal judgment. Limitations: no limitations Course Vital Signs 10/11/19 10/11/19 10/11/19 13:34 13:41 14:41 Temperature 98.7 F Pulse Rate 78 Respiratory 20 18 18 Rate Blood Pressure 127/80 O2 Sat by Pulse 98 Oximetry 10/11/19 15:00 Temperature Pulse Rate Respiratory 18 Rate Blood Pressure O2 Sat by Pulse 98 Oximetry Medical Decision Making - Medical Decision Making CXR reveals fibrosis, Patient saturating well on home oxygen levels. Patient does not appear in disters. no tachycardia. no leg swelling. Patient troponin (- ). denies CP. EKG no acute findings. Patient appears well nontoxic. I discussed the case with attending provider Dr. Strong who reviewed EKGs were patient's history I discussed imaging studies, PE findings. At this time I discussed results with patient as well as she states that she feels comfortable going home she states that her shortness breath has been pretty consistent since her discharge from the hospital comfortable. I recommended close follow-up with pulmonology and immediate return for worsening shortness of breath. Patient verbalized understanding is agreeable to discharge as is my attending provider with discharge patient - Lab Data Result diagrams: 10/11/19 14:05 10/11/19 16:03 Lab Results 10/11/19 10/11/19 10/11/19 Range/Units 14:00 14:00 14:00 WBC (3.8-10.6) k/uL RBC (3.80-5.40) m/uL Hgb (11.4-16.0) gm/dL Hct (34.0-46.0) % MCV (80.0-100.0) fL MCH (25.0-35.0) pg MCHC (31.0-37.0) g/dL RDW (11.5-15.5) % Plt Count (150-450) k/uL Neutrophils % % Lymphocytes % % Monocytes % % Eosinophils % % Basophils % % Neutrophils # (1.3-7.7) k/uL Lymphocytes # (1.0-4.8) k/uL Monocytes # (0-1.0) k/uL Eosinophils # (0-0.7) k/uL Basophils # (0-0.2) k/uL PT 9.7 (9.0-12.0) sec INR 0.9 (<1.2) APTT 23.0 (22.0-30.0) sec Sodium (137-145) mmol/L Potassium (3.5-5.1) mmol/L Chloride (98-107) mmol/L Carbon Dioxide (22-30) mmol/L Anion Gap mmol/L BUN (7-17) mg/dL Creatinine (0.52-1.04) mg/dL Est GFR (CKD-EPI)AfAm (>60 ml/min/1.73 sqM) Est GFR (CKD-EPI)NonAf (>60 ml/min/1.73 sqM) Glucose (74-99) mg/dL Plasma Lactic Acid Carlton 1.3 (0.7-2.0) mmol/L Calcium (8.4-10.2) mg/dL Total Bilirubin (0.2-1.3) mg/dL AST (14-36) U/L ALT (4-34) U/L Alkaline Phosphatase (38-126) U/L Troponin I (0.000-0.034) ng/mL NT-Pro-B Natriuret Pep 345 pg/mL Total Protein (6.3-8.2) g/dL Albumin (3.5-5.0) g/dL 10/11/19 10/11/19 10/11/19 Range/Units 14:05 16:03 16:03 WBC 8.5 (3.8-10.6) k/uL RBC 4.47 (3.80-5.40) m/uL Hgb 12.6 (11.4-16.0) gm/dL Hct 40.3 (34.0-46.0) % MCV 90.2 (80.0-100.0) fL MCH 28.2 (25.0-35.0) pg MCHC 31.2 (31.0-37.0) g/dL RDW 14.8 (11.5-15.5) % Plt Count 188 (150-450) k/uL Neutrophils % 59 % Lymphocytes % 31 % Monocytes % 5 % Eosinophils % 3 % Basophils % 1 % Neutrophils # 5.0 (1.3-7.7) k/uL Lymphocytes # 2.6 (1.0-4.8) k/uL Monocytes # 0.4 (0-1.0) k/uL Eosinophils # 0.3 (0-0.7) k/uL Basophils # 0.1 (0-0.2) k/uL PT (9.0-12.0) sec INR (<1.2) APTT (22.0-30.0) sec Sodium 139 (137-145) mmol/L Potassium 4.4 (3.5-5.1) mmol/L Chloride 103 (98-107) mmol/L Carbon Dioxide 30 (22-30) mmol/L Anion Gap 6 mmol/L BUN 20 H (7-17) mg/dL Creatinine 0.70 (0.52-1.04) mg/dL Est GFR (CKD-EPI)AfAm >90 (>60 ml/min/1.73 sqM) Est GFR (CKD-EPI)NonAf >90 (>60 ml/min/1.73 sqM) Glucose 106 H (74-99) mg/dL Plasma Lactic Acid Carlton (0.7-2.0) mmol/L Calcium 9.4 (8.4-10.2) mg/dL Total Bilirubin 0.4 (0.2-1.3) mg/dL AST 24 (14-36) U/L ALT 22 (4-34) U/L Alkaline Phosphatase 83 (38-126) U/L Troponin I 0.017 (0.000-0.034) ng/mL NT-Pro-B Natriuret Pep pg/mL Total Protein 7.0 (6.3-8.2) g/dL Albumin 4.0 (3.5-5.0) g/dL Disposition Clinical Impression: Scarring of lung, Chronic shortness of breath Disposition: HOME SELF-CARE Condition: Good Instructions (If sedation given, give patient instructions): Bronchiectasis (ED) Additional Instructions: Please use medication as discussed. Please follow-up with family doctor in the next 2 days. Please return to emergency room if the symptoms increase or worsen or for any other concerns. Prescriptions: predniSONE 50 mg PO DAILY 3 Days #3 tab Is patient prescribed a controlled substance at d/c from ED?: No Referrals: Issac Cook MD [Primary Care Provider] - 1-2 days Time of Disposition: 16:52
[2019-10-11 14:16] LABS: Basophils # (A) 0.1 k/uL (0-0.2); Basophils % (A) 1 %; Eosinophils # (A) 0.3 k/uL (0-0.7); Eosinophils % (A) 3 %; HCT 40.3 % (34.0-46.0); HGB 12.6 gm/dL (11.4-16.0); Lymphocytes # (A) 2.6 k/uL (1.0-4.8); Lymphocytes % (A) 31 %; MCH 28.2 pg (25.0-35.0); MCHC 31.2 g/dL (31.0-37.0); MCV 90.2 fL (80.0-100.0); Mean Platelet Volume 8.5; Monocytes # (A) 0.4 k/uL (0-1.0); Monocytes % (A) 5 %; Neutrophils % (A) 59 %; Platelet Count 188 k/uL (150-450); RBC 4.47 m/uL (3.80-5.40); RDW 14.8 % (11.5-15.5); WBC 8.5 k/uL (3.8-10.6)
[2019-10-11 14:37] LABS: INR 0.9 (<1.2); Prothrombin Time 9.7 sec (9.0-12.0)
--- NOTE | 2019-10-11 15:04 | XR ---
EXAMINATION TYPE: XR chest 2V DATE OF EXAM: 10/11/2019 COMPARISON: Prior chest x-ray dated 08/28/2019, CT 08/19/2019 HISTORY: Difficulty breathing TECHNIQUE: Frontal and lateral views of the chest are obtained. FINDINGS: Heart appears prominently at least in part due to rotation. Lack areas of increased attenu ation in the mid lungs may reflect atelectasis or scar. There is no evident pneumothorax or pleural e ffusion. Interstitium is increased. Aorta is dense. IMPRESSION: No acute cardiopulmonary process. Interstitial lung disease with bronchiectasis, there a re areas of parenchymal scarring.
[2019-10-11 15:06] VITALS: RESP 18
[2019-10-11 16:23] LABS: ALT 22 U/L (4-34); AST 24 U/L (14-36); African American GFR (CKD) >90 (>60 ml/min/1.73 sqM); Alkaline Phosphatase 83 U/L (38-126); Anion Gap 6 mmol/L; Blood Urea Nitrogen 20 mg/dL (7-17); Calcium 9.4 mg/dL (8.4-10.2); Carbon Dioxide 30 mmol/L (22-30); Chloride 103 mmol/L (98-107); Glucose 106 mg/dL (74-99); Non-African American GFR(CKD) >90 (>60 ml/min/1.73 sqM); Potassium 4.4 mmol/L (3.5-5.1); Sodium 139 mmol/L (137-145); Total Bilirubin 0.4 mg/dL (0.2-1.3)
[2019-10-11 18:11] VITALS: BP 129/85; PULSE 75
== END 2019-10-11 18:15 | disposition home or self-care (01) ==
LOC: EC 13:32
DX: J98.4 Other disorders of lung (principal); R06.02 Shortness of breath; J84.10 Pulmonary fibrosis, unspecified; I25.10 Atherosclerotic heart disease of native coronary artery without angina pectoris; E11.9 Type 2 diabetes mellitus without complications; I10 Essential (primary) hypertension; J44.9 Chronic obstructive pulmonary disease, unspecified; E66.9 Obesity, unspecified; Z68.43 Body mass index [BMI] 50.0-59.9, adult; Z79.01 Long term (current) use of anticoagulants; Z79.899 Other long term (current) drug therapy; Z88.1 Allergy status to other antibiotic agents; Z88.2 Allergy status to sulfonamides; Z79.84 Long term (current) use of oral hypoglycemic drugs; Z96.653 Presence of artificial knee joint, bilateral
CPT/HCPCS: 36415; 71046; 80053; 83605; 83880; 84484; 85025; 85610; 85730; 93005; 99285

== ENCOUNTER → 2020-01-19 | Outpatient (CLI) | payer OTHER ==
[2020-01-19 15:26] VITALS: BP 140/92; PULSE 77; RESP 20; TEMP 98.5
--- NOTE | 2020-01-19 16:15 | P.PN ---
Progress Note - Text Progress Note Date: 01/19/20 Chief Complaint: Vaginal odor for 2 months. HPI: This is a 59-year-old 013 with an LMP of 2005. The patient is status post DESMOND/BSO for benign reasons in 2005. She states she has noticed a vaginal odor for the past 2 months. She on occasion has noticed a slight thin yellowish discharge without itching. She states it has been a long time since she has been sexually active. Last month she tried a seven-day course of [id number] Monistat which did not help. Last week she tried douching and did not notice any improvement. The patient states she has not gone for a colonoscopy as was previously recommended. ROS: She denies fever, cardiac, or GI problems. Respiratory: She still has occasional shortness of breath following her hospitalization for Covid between May and July 2019. PE: Blood pressure: 140/92, Height: 67 inches, Weight: 360 pounds, Temperature: 98.5, Pulse: 77. Pulse oximeter 94%. This is a well developed, well nourished, heavyset white female who is alert and orientedx3, in no acute distress. Abdomen: Soft, obese, nontender, without palpable masses. External genitalia is within normal limits. Vagina reveals a small amount of a creamy light yellow discharge without significant odor. The vagina is otherwise is unremarkable. There is no evidence of prolapse. Bimanual examination is negative for mass or tenderness. Impression: 1. 59-year-old female status post DESMOND/BSO for benign reasons with 2 month history of vaginal odor and slight discharge on examination today. Differential diagnosis will include Meg vaginitis, bacterial vaginosis, physiologic discharge and odor, and less likely trichomoniasis. 2. Previous heme positive stool on her annual exam on 05/20/2019. Plan: 1. Affirm testing was obtained from the vaginal discharge and will test for meg, Gardnerella, and Trichomonas. 2. I have recommended avoiding douching. 3. I recommended that she speak with her primary care physician about scheduling a colonoscopy for her regarding the heme positive stool. Time spent with the patient: 20 minutes
--- NOTE | 2020-01-26 18:05 | P.PN ---
Progress Note - Text Progress Note Date: 01/26/20 OUTPATIENT FOLLOW-UP NOTE TEST(S)/RESULTS: Affirm testing on 01/19/2020 was negative for janna, Gardnerella, and Trichomonas. METHOD OF NOTIFICATION: She was notified by phone. PATIENT COMMENTS: The patient states she continues to have vaginal odor. DIAGNOSIS: Possible non-Gardnerella bacterial vaginosis. DISCUSSION: We will plan a trial of oral metronidazole 500 mg twice a day 1 week. PLAN: After the 1 week of metronidazole, if she continues to have symptoms she was instructed to call. At that time we will consider other testing for other possible causes for her discharge and odor such as STD testing. If it has improved she will follow up in approximately 4 months for her annual ex amination. The electronic prescription will be sent to [facility] pharmacy on .
== END | disposition home or self-care (01) ==
LOC: WWCWWP 15:10
PROVIDERS: ATTEND Obstetrics & Gynecology
DX: Z53.9 Procedure and treatment not carried out, unspecified reason (principal)